=== PATIENT | female | born 1985 | race Caucasian/White ===

== ENCOUNTER 2018-05-13 12:56 | Day surgery (SDC) | payer OTHER ==
[2018-05-13] MEDS ORDERED: ROPIvacaine 0.5% 30 ML INJECTION (J2795 PER 1MG) (12:57)
[2018-05-13] MEDS ORDERED: EPINEPHrine INJ 1 MG/ML 1ML AMP (12:57)
[2018-05-13] MEDS ORDERED: dexameTHASONE 10 MG/1 ML VIAL PRES.FREE (J1100) (12:57)
[2018-05-13] MEDS: LR 1,000 ML IV (13:42)
[2018-05-13] MEDS ORDERED: BUPIVACAINE HCL 0.5% 10 ML VIAL As Ordered (14:06)
[2018-05-13 14:31] LABS: CONTROL LINE HCG INT CTR LINE PRESENT; HCG, SERUM QUALITATIVE NEGATIVE (NEGATIVE)
[2018-05-13] MEDS ORDERED: LIDOCAINE 2% INJ 100 MG/5 ML SDV (FOR ANES.) As Ordered (14:53)
[2018-05-13] MEDS ORDERED: PROPOFOL 200 MG/20 ML VIAL As Ordered (14:53)
[2018-05-13] MEDS ORDERED: fentaNYL 100 MCG/2 ML INJECTION (J3010) As Ordered ×5 (14:58→18:13)
[2018-05-13] MEDS ORDERED: MIDAZOLAM INJ 2 MG/2 ML VIAL (J2250) As Ordered (14:59)
[2018-05-13] MEDS: fentaNYL 100 MCG/2 ML INJECTION (J3010) IV ×2 (15:10→15:35)
[2018-05-13] MEDS: MIDAZOLAM INJ 2 MG/2 ML VIAL (J2250) IV (15:10)
[2018-05-13] MEDS ORDERED: ROCURONIUM BROMIDE 50 MG/5 ML VIAL As Ordered (15:13)
[2018-05-13] MEDS ORDERED: METOCLOPRAMIDE INJ 10MG/2ML VIAL (J2765) As Ordered (18:04)
[2018-05-13] MEDS ORDERED: dexameTHASONE 4 MG/ML 1ML VIAL (J1100) As Ordered ×2 (18:04)
[2018-05-13] MEDS ORDERED: ONDANSETRON 4MG/2ML VIAL (J2405) As Ordered (18:04)
[2018-05-13] MEDS ORDERED: MORPHINE 10 MG/ML 1ML VIAL (J2270) IV (19:15)
[2018-05-13] MEDS ORDERED: LR 1,000 ML IV ×2 (19:15)
[2018-05-13] MEDS ORDERED: fentaNYL 100 MCG/2 ML INJECTION (J3010) IV (19:15)
[2018-05-13] MEDS: PERCOCET 5MG/325MG TAB PO (19:23)
[2018-05-13] MEDS: ONDANSETRON 4MG/2ML VIAL (J2405) IV (19:29)
== END 2018-05-13 21:24 | disposition home or self-care (01) ==
LOC: M SDC 12:56
DX: S83.511A Sprain of anterior cruciate ligament of right knee, initial encounter (principal); S83.241A Other tear of medial meniscus, current injury, right knee, initial encounter; X58.XXXA Exposure to other specified factors, initial encounter; Y92.89 Other specified places as the place of occurrence of the external cause; Y93.9 Activity, unspecified; Y99.9 Unspecified external cause status; R06.83 Snoring; E66.01 Morbid (severe) obesity due to excess calories; R94.31 Abnormal electrocardiogram [ECG] [EKG]; Z88.2 Allergy status to sulfonamides
CPT/HCPCS: 29888